=== PATIENT | male | born 1975 | race Caucasian/White ===

== ENCOUNTER → 2022-10-23 10:17 | Outpatient (BNVA) | payer BC, SELFPAY | PROVIDERS: PCP Nurse Practitioner Family; Visit Provider Internal Medicine Rheumatology | DX: Z79.899 Other long term (current) drug therapy (principal); M19.90 Unspecified osteoarthritis, unspecified site; Z11.59 Encounter for screening for other viral diseases; M45.6 Ankylosing spondylitis lumbar region; R76.8 Other specified abnormal immunological findings in serum | CPT/HCPCS: 36415; 73130; 73630; 80076; 82306; 82565; 85025; 85651; 86140; 86160; 86162; 86235; 86255; 86376; 86480; 86704; 86803; 86812; 87340 ==

== ENCOUNTER → 2023-01-30 09:37 | Outpatient (BNVA) | payer BC, SELFPAY | PROVIDERS: PCP Nurse Practitioner Family; Referring Provider Nurse Practitioner Family; Visit Provider Student in an Organized Health Care Education/Training Program | DX: M75.42 Impingement syndrome of left shoulder | CPT/HCPCS: 73030 ==

== ENCOUNTER 2023-03-07 10:04 | Day surgery (SDC) | payer BC, SELFPAY ==
[2023-03-07 10:14] VITALS: BP 116/75; PULSE 58; RESP 18; TEMP 36.6; O2SAT 97; BMI 27.1
[2023-03-07] MEDS: sodium chloride 0.9% 1,000 ML 30 ML IV (10:23)
--- NOTE | 2023-03-07 10:27 | PM.HP ---
Providers/Chief Complaint Primary Care Provider: Zenaida Doll Chief Complaint: G0102, Z12.11 History of Present Illness Ariela Khan is a 48 year old male who is here for his first colon cancer screening. He denies any family history of colon cancer, significant abdominal pain, nausea, emesis, diarrhea, constipation, hematochezia and/or melena. He does report that sometimes he gets left lower quadrant gas pain that is relieved with passing gas. Review of Systems General: Reports: 10 or more systems reviewed and unremarkable except in HPI and below Medications/Allergies Home Medications Medication Instructions Recorded Confirmed Last Taken Type famotidine 10 mg tablet 10 mg PO DAILY 09/04/22 03/07/23 03/06/23 History trazodone 50 mg tablet 50 mg PO BEDTIME 10/23/22 03/07/23 03/06/23 History diclofenac sodium 1 % topical gel 2 g topical QID #100 grams 01/16/23 03/07/23 Unknown Rx diclofenac sodium 75 mg 75 mg PO Q12H PRN moderate to 01/16/23 03/07/23 02/13/23 Rx tablet,delayed release severe pain as needed #30 tabs hydroxychloroquine 200 mg tablet 200 mg PO BID #180 tabs 01/16/23 03/07/23 02/28/23 Rx clobetasol 0.05 % topical cream 1 applic topical PRN 02/12/23 03/07/23 Unknown History fluoxetine 40 mg capsule 40 mg PO DAILY 02/12/23 03/07/23 03/06/23 History atorvastatin 10 mg tablet 10 mg PO DAILY 03/05/23 03/07/23 03/06/23 History Allergies Allergy/AdvReac Type Severity Reaction Status Date / Time fluticasone [From Flonase] Allergy Mild ADR-Gastrointestinal Verified 03/07/23 10:12 Upset ibuprofen Allergy Mild hands Verified 03/07/23 10:12 swelling percocet Allergy Intermediate ALGY-Hives Uncoded 03/07/23 10:12 STEROIDS Allergy FATIGUE Uncoded 03/07/23 10:12 PFSH Acute PFSH: Medical History (Updated 03/07/23 @ 10:28 by Francisco Puente DO) Acid reflux ADHD Anxiety Depression with anxiety High risk medication use Hyperlipidemia Immunization counseling Inflammatory arthritis NSAID long-term use Seronegative rheumatoid arthritis of both hands Surgical History History of appendectomy History of vasectomy Hx of foot surgery bilateral. Family History Other Cancer Diabetes Family history of premature coronary artery disease Hypertension Rheumatoid arthritis Stroke Denies family history of Lupus Chronic kidney disease (CKD) Lung disease Social History Smoking and tobacco/nicotine status: former use of tobacco/nicotine Alcohol intake: current Alcohol intake frequency: few times a month Vitals/I&O/Wt Last Vital Signs Temp 97.8 F 03/07/23 10:14 Pulse 58 L 03/07/23 10:14 Resp 18 03/07/23 10:14 BP 116/75 03/07/23 10:14 Pulse Ox 97 03/07/23 10:14 O2 Del Method Room Air 03/07/23 10:14 Weight last 48 hrs Weight 173 lb A&P Assessment and plan (1) Screening for colon cancer: Plan Screening colonoscopy The risks and benefits of the procedure, including bleeding, infection, intestinal perforation requiring surgery, missed lesion were explained to the patient. The patient is understanding of the risks and wishes to proceed. Attestations Medical Necessity Statement*: Home Coding Level of Care Code Acute Code for Chg Fwd Diagnoses Screening for colon cancer Z12.11
--- NOTE | 2023-03-07 10:39 | P.ANESASSM_ITS ---
Pre-Anesthetic Assessment Height/Weight: Height 1.7 m Weight 78.471 kg Temp Pulse Resp BP Pulse Ox O2 Del Method 97.8 F 58 L 18 116/75 97 Room Air 03/07/23 10:14 03/07/23 10:14 03/07/23 10:14 03/07/23 10:14 03/07/23 10:14 03/07/23 10:14 Preop Diagnosis: screening Operation Date: 03/07/23 11:00 Proposed Procedures p Colonoscopy 13103,G0102,Z12.11(Not Applicable) - Francisco Puente DO Familial anesthetic complications: none Last intake: Intake Last Liquid Date 03/06/23 Last Liquid Time 21:00 Last Solid Date 03/05/23 Social Alcohol (1x month) Exam alert, oriented x 3, clear to auscultation bilaterally and regular rate & rhythm Airway Submandibular: within normal limits Cervical ROM: within normal limits Mallampati: Class II Dentition: full Pulmonary Sleep Apnea (CPAP) CV/HEM None reported None reported Hepatic None reported GI Gastroesophageal Reflux Disease Metabolic Hyperlipidemia [facility] [place] Rheumatoid Arthritis Neuropsych Anxiety and Depression Anesthetic Plan ASA status: 2 Anesthesia: MAC Medications/Allergies Home Medications Medication Instructions Recorded Confirmed Last Taken Type famotidine 10 mg tablet 10 mg PO DAILY 09/04/22 03/07/23 03/06/23 History trazodone 50 mg tablet 50 mg PO BEDTIME 10/23/22 03/07/23 03/06/23 History diclofenac sodium 1 % topical gel 2 g topical QID #100 grams 01/16/23 03/07/23 Unknown Rx diclofenac sodium 75 mg 75 mg PO Q12H PRN moderate to 01/16/23 03/07/23 02/13/23 Rx tablet,delayed release severe pain as needed #30 tabs hydroxychloroquine 200 mg tablet 200 mg PO BID #180 tabs 01/16/23 03/07/23 02/28/23 Rx clobetasol 0.05 % topical cream 1 applic topical PRN 02/12/23 03/07/23 Unknown History fluoxetine 40 mg capsule 40 mg PO DAILY 02/12/23 03/07/23 03/06/23 History atorvastatin 10 mg tablet 10 mg PO DAILY 03/05/23 03/07/23 03/06/23 History Allergies Allergy/AdvReac Type Severity Reaction Status Date / Time fluticasone [From Flonase] Allergy Mild ADR-Gastrointestinal Verified 03/07/23 10:12 Upset ibuprofen Allergy Mild hands Verified 03/07/23 10:12 swelling percocet Allergy Intermediate ALGY-Hives Uncoded 03/07/23 10:12 STEROIDS Allergy FATIGUE Uncoded 03/07/23 10:12 Current Medications Generic Name Dose Route Start Last Admin Trade Name Freq PRN Reason Stop Dose Admin Sodium Chloride 1,000 mls @ 30 mls/hr 03/07/23 10:15 03/07/23 10:23 Sodium Chloride 0.9% IV 03/08/23 10:14 30 mls/hr .Q24H AMANDA Administration PFSH Anesthesia Medical History (Updated 03/07/23 @ 10:28 by Francisco Puente DO) Acid reflux ADHD Anxiety Depression with anxiety High risk medication use Hyperlipidemia Immunization counseling Inflammatory arthritis NSAID long-term use Seronegative rheumatoid arthritis of both hands Surgical History History of appendectomy History of vasectomy Hx of foot surgery bilateral. Family History Other Cancer Diabetes Family history of premature coronary artery disease Hypertension Rheumatoid arthritis Stroke Denies family history of Lupus Chronic kidney disease (CKD) Lung disease Social History Smoking and tobacco/nicotine status: former use of tobacco/nicotine Alcohol intake: current Alcohol intake frequency: few times a month Data Anesthesia Cardiac Studies: No Data to Display
[2023-03-07 12:02] VITALS: BP 102/59; PULSE 54; RESP 14; TEMP 36.3; O2SAT 97
[2023-03-07 12:12] VITALS: BP 108/63; PULSE 55; RESP 16; O2SAT 95
== END 2023-03-07 12:34 | disposition home or self-care (01) ==
PROVIDERS: PCP Nurse Practitioner Family; Visit Provider Surgery
PROC: 0DJD8ZZ Inspection of Lower Intestinal Tract, Via Natural or Artificial Opening Endoscopic (ICD-10-PCS; CPT 45378; principal; 2023-03-07 11:00)
DX: Z12.11 Encounter for screening for malignant neoplasm of colon (principal); K21.9 Gastro-esophageal reflux disease without esophagitis; F90.9 Attention-deficit hyperactivity disorder, unspecified type; Z87.891 Personal history of nicotine dependence; G47.30 Sleep apnea, unspecified; E78.5 Hyperlipidemia, unspecified; M05.9 Rheumatoid arthritis with rheumatoid factor, unspecified; Z79.1 Long term (current) use of non-steroidal anti-inflammatories (NSAID)
CPT/HCPCS: 45378; J2704; J7030

== ENCOUNTER 2023-07-31 16:46 | Outpatient (CLI) | payer BC, SELFPAY | END 2023-07-31 16:47 | disposition home or self-care (01) | LOC: LAB 16:50 | PROVIDERS: PCP Nurse Practitioner Family; Visit Provider Internal Medicine Rheumatology | DX: M06.041 Rheumatoid arthritis without rheumatoid factor, right hand (principal); M06.042 Rheumatoid arthritis without rheumatoid factor, left hand; Z79.899 Other long term (current) drug therapy | CPT/HCPCS: 36415; 80076; 82565; 85025; 86140 ==

== ENCOUNTER 2023-10-03 11:13 | Day surgery (SDC) | payer BC, SELFPAY ==
[2023-10-03] VITALS (11 sets, daily range): BP systolic 116–145; BP diastolic 65–90; PULSE 58–68; RESP 16–20; TEMP 36.3–36.6; O2SAT 93–99; BMI 27.1
[2023-10-03] MEDS: sodium chloride 0.9% 1,000 ML 30 ML IV (11:38)
--- NOTE | 2023-10-03 12:01 | W.PM.OPSUD ---
Surgery/Procedure H&P Update DATE OF PROCEDURE: October 03, 2023 DATE H&P PERFORMED: 09/14/23 H&P UPDATE INFORMATION: I have reviewed H&P completed within last 30 days, I have examined patient prior to procedure and No changes to prior documentation CHANGES TO PREVIOUS DOCUMENTATION: No changes PREOP DIAGNOSIS: Deviated nasal septum/turbinate hypertrophy PRIMARY INDICATION FOR PROCEDURE: Deviated nasal septum and turbinate hypertrophy. As well as obstructive sleep apnea. PLANNED PROCEDURE: Operation Date: 10/03/23 13:00 Proposed Procedures p Septoplasty 57787, 70248, G47.33, J34.3, J35.1, J34.2(Not Applicable) - Arben Ospina MD s Turbinate Reduction(Not Applicable) - Arben Ospina MD
--- NOTE | 2023-10-03 13:16 | ANES.PREANE2 ---
Pre-Anesthetic Assessment Height/Weight: Height 1.7 m Weight 78.471 kg Temp Pulse Resp BP Pulse Ox O2 Del Method 97.3 F L 58 L 17 123/71 99 Room Air 10/03/23 11:28 10/03/23 11:28 10/03/23 11:28 10/03/23 11:28 10/03/23 11:28 10/03/23 11:29 Preop Diagnosis: Deviated nasal septum/turbinate hypertrophy Operation Date: 10/03/23 13:00 Proposed Procedures p Septoplasty 23474, 68789, G47.33, J34.3, J35.1, J34.2(Not Applicable) - Arben Ospina MD s Turbinate Reduction(Not Applicable) - Arben Ospina MD Familial anesthetic complications: none Was Beta Jayla taken within 24 hours: N/A Was Clonidine taken within 24 hours: N/A Last intake: Intake Last Liquid Date 10/02/23 Last Liquid Time 19:30 Last Solid Date 10/02/23 Last Solid Time 19:30 Social Tobacco and No alcohol Exam alert, oriented x 3 and regular rate & rhythm Airway Submandibular: within normal limits Cervical ROM: within normal limits Mallampati: Class II Dentition: chipped GI Gastroesophageal Reflux Disease Musc/skel Osteoarthritis/DJD Neuropsych Anxiety and Depression Anesthetic Plan ASA status: 3 Anesthesia: General Medications/Allergies Home Medications Medication Instructions Recorded Confirmed Last Taken Type famotidine 10 mg tablet 10 mg PO DAILY 09/04/22 10/03/23 10/03/23 08:30 History trazodone 50 mg tablet 50 mg PO BEDTIME 10/23/22 10/02/23 03/06/23 History diclofenac sodium 1 % topical gel 2 g topical QID #100 grams 01/16/23 10/02/23 Unknown Rx fluoxetine 40 mg capsule 40 mg PO DAILY 02/12/23 10/03/23 10/03/23 07:30 History atorvastatin 10 mg tablet 10 mg PO DAILY 03/05/23 10/02/23 10/02/23 History hydroxychloroquine 200 mg tablet 200 mg PO BID #180 tabs 07/16/23 10/03/23 10/03/23 08:30 Rx folic acid 1 mg tablet 1 mg PO DAILY #30 tabs 09/24/23 10/03/23 10/03/23 08:30 Rx methotrexate sodium 2.5 mg tablet See Rx Instructions PO .Q7days #30 09/24/23 10/02/23 10/02/23 Rx tabs Allergies Allergy/AdvReac Type Severity Reaction Status Date / Time fluticasone [From Flonase] Allergy Mild ADR-Gastrointestinal Verified 09/14/23 09:27 Upset ibuprofen Allergy Mild hands Verified 09/14/23 09:27 swelling leflunomide AdvReac Intermediate GI Verified 09/14/23 09:27 complaints percocet Allergy Intermediate ALGY-Hives Uncoded 09/14/23 09:27 STEROIDS Allergy FATIGUE Uncoded 09/14/23 09:27 Current Medications Generic Name Dose Route Start Last Admin Trade Name Freq PRN Reason Stop Dose Admin Sodium Chloride 1,000 mls @ 30 mls/hr 10/03/23 11:30 10/03/23 11:38 Sodium Chloride 0.9% IV 10/04/23 11:29 30 mls/hr .Q24H AMANDA Administration PFSH Anesthesia Medical History Seronegative rheumatoid arthritis of both hands NSAID long-term use Immunization counseling High risk medication use Inflammatory arthritis Hyperlipidemia Depression with anxiety Anxiety Acid reflux ADHD Surgical History History of vasectomy Hx of foot surgery bilateral. History of appendectomy Family History Other Cancer Diabetes Family history of premature coronary artery disease Hypertension Rheumatoid arthritis Stroke Denies family history of Lupus Chronic kidney disease (CKD) Lung disease Social History Smoking and tobacco/nicotine status: current some day tobacco/nicotine user Alcohol intake: current Alcohol intake frequency: few times a month Data Anesthesia Cardiac Studies: No Data to Display
[2023-10-03] MEDS: ceFAZolin 2,000 MG in sodium chloride 0.9% (plus) 50 ML 100 MG IV (13:24)
[2023-10-03] MEDS: oxymetazoline 0.05% Nasal Spray 15 mL 2 SPRAY NOSTRIL-B (13:45)
[2023-10-03] MEDS: lidocaine-epi 2% 1.7mL Cartridge (OR Only) 11.9000000000000004 ML XX (14:04)
[2023-10-03] MEDS: neomycin-poly-bacitracin oint 28 gm 1 APPLIC TOPICAL (14:11)
--- NOTE | 2023-10-03 14:24 | P.OP_ITS ---
Operative Report Date of procedure: October 03, 2023 Pre-op diagnosis: Deviated nasal septum. Turbinate hypertrophy. Obstructive sleep apnea. Post-op diagnosis: Same Post-op findings: Septum straight after removing spurs posterior to the on the left side and inferiorly and anteriorly on the right side. Turbinates reduced to 2+ bilaterally. Procedure done: Septoplasty and partial bilateral inferior turbinate reduction with submucous resection technique Implants: 2 septal splints and 2 Telfa packs Specimens removed/disposition: Portions of bilateral inferior turbinates. Septal cartilage and bone. Pathology: Portions of bilateral inferior turbinates for permanent section Surgeon: Arben Opsina MD Anesthesia: General and Local Estimated blood loss: 15 mL Complications: No complications encountered Findings: Severe inferior septal spur impinging into inferior turbinate right side anteriorly and midportion. Quadrangular cartilage off crest the right side. Crest deviated to the right side as well. Large posterior spurs to left side. Turbinates 3-4+ bilaterally. Brief History: 48-year-old male patient with obstructive sleep apnea which has been refractory to time and CPAP usage. He is noted to have a deviated nasal septum and turbinate hypertrophy. Also noted to have tonsillar hypertrophy low hanging soft palate and hypertrophic uvula. Insurance would not approve the tonsillectomy UPPP with removal of the uvula. Therefore the septoplasty and turbinate reduction are being done at this time. The procedure its risks and complications were explained in detail to the patient in the office setting. These risks included bleeding infection numbness scarring swelling bruising septal hematoma abscess or perforation change in sense of smell nasal dryness recurrent problems need for additional treatment. Persistence of obstructive sleep apnea is very likely and potential need for additional treatment in the oropharynx and palate and tonsillar area is likely. Anesthetic risk such as heart attack stroke or not surviving the surgery were also discussed. Informed consent was granted and witnessed. Procedure: Description of procedure: The patient was placed on the operating table in the supine position. Adequate general endotracheal tube anesthesia was obtained. The patient was repositioned into a semirecumbent position. His eyes were taped shut. His nose was packed with cottonoids soaked in 12-hour Afrin. Nasal hairs were trimmed with scissors. Afrin packs were removed and the septum and inferior and middle turbinates were infiltrated with local. A total of 11.9 mL of 2% Xylocaine with 1 100,000 epinephrine was utilized. Afrin packs were reapplied to the nose. Patient was then prepped and draped in usual fashion for this procedure. A timeout was then accomplished identifying the patient date of plan procedure allergies fire risk and medications given. With all in agreement the procedure continued. The Afrin packs were removed from the nose. The inferior turbinates were outfractured with a Isabella elevator. A right hemitransfixion incision was created with a 15 blade carrying it down to the level of the septal cartilage. A mucoperichondrial periosteal flap was then raised on the right side in all dir ections. The distal aspect of the quadrangular cartilage was freed of scar. There were definite old fractures and old scar present. After the flaps were raised an inferior strip of quadrangular cartilage that was overriding the crest of the right side was trimmed with a half round knife and George forceps. Then the quadrangular cartilage was disarticulated from the perpendicular plate of the ethmoid and vomer. A posterior tunnel was created on the left side. The quadrangular cartilage was further trimmed to have at rest in the crest appropriately. The crest that was deviated to the right side was trimmed with George forceps. The significant bony septal spur superiorly deviating from right to left was resected. The posterior bony spur on the left side was also resected. This was done with George forceps. With this accomplished the septum now rested in a good straight midline position with good support. A drain hole was created on the right side to prevent hematoma formation. The inferior turbinates were then addressed. These remain 3+ hypertrophic. These were cauterized along the medial and lateral aspects bilaterally. Then sink scissors were used to cut the cauterized line and bone. The distal aspect of the turbinate and some of the more proximal bone were resected leaving 2+ turbinate size bilaterally. No active bleeding was encountered. A Isabella jadyn vator was now able to be passed through both nasal chambers and twist without obstruction. The septal pocket was suctioned clean. The septum was placed into the proper position in the maxillary crest. The right hemitransfixion incision was closed loosely with interrupted 4-0 chromic suture. 2 septal splints were coated with Neosporin and 1 was applied each side of the septum. These were sutured in a through and through fashion with 3-0 Prolene. 2 Telfa packs were then cut to size coated with Neosporin and 1 was applied each side of the septum. Then the face was cleansed. A drip pad was applied under the patient's nose and taped to the cheeks. The mouth and oropharynx were suctioned clean. The patient was then returned to the anesthesiologist for wake-up and extubation. The patient tolerated the procedure well had an estimated blood loss of 15 mL or less and arrived in recovery in stable condition.
--- NOTE | 2023-10-03 15:02 | ANE.PACU2 ---
Inpatient post-anesthesia follow up: Airway intact: Yes Vital signs: Temperature 97.7 F Pulse Rate 58 Respiratory Rate 16 Blood Pressure 120/74 Pulse Oximetry 98 Oxygen Delivery Me thod Room Air Oxygen Flow Rate 6 Fraction of Inspir ed Oxygen Hydration adequate: Yes Nausea and vomiting: No Pain level: 3 Mental status: Baseline
== END 2023-10-03 15:48 | disposition home or self-care (01) ==
PROVIDERS: PCP Nurse Practitioner Family; Visit Provider Otolaryngology
PROC: (CPT 30520; principal; 2023-10-03 12:50)
PROC: (CPT 30140; 2023-10-03 12:50)
DX: J34.2 Deviated nasal septum (principal); G47.33 Obstructive sleep apnea (adult) (pediatric); J34.89 Other specified disorders of nose and nasal sinuses
CPT/HCPCS: 30140; 30520; 88305; 88311; J0690; J1100; J2250; J2405; J2704; J2710; J3010; J3490; J7030